=== PATIENT | female | born 1990 | race Caucasian/White ===

== ENCOUNTER 2017-03-14 12:17 | Emergency (ER) | payer OTHER ==
[2017-03-14 12:43] VITALS: TEMP 97.5; BMI 21.0
[2017-03-14] MEDS ORDERED: SODIUM CHLORIDE 1,000 ML IV ONE (12:44)
[2017-03-14 13:04] LABS: BASOPHIL 0.7 % (0-2.0); EOSINOPHIL 0.4 % (0-4.5); MCH 29.3 pg (25.7-33.7); MCHC 33.8 g/dl (32.0-36.0); MEAN CELL VOLUME 86.7 fl (80-96); NEUTROPHILS 73.7 % (42.8-82.8); PLATELET COUNT 197 K/MM3 (134-434); RDW 12.7 % (11.6-15.6); WHITE BLOOD COUNT 7.7 K/mm3 (4.0-10.0)
[2017-03-14 13:28] LABS: ALBUMIN 4.4 g/dl (3.4-5.0); ANION GAP 11 (8-16); BILIRUBIN,TOTAL 0.6 mg/dL (0.2-1.0); CALCIUM 9.2 mg/dL (8.5-10.1); CO2 22 mmol/L (21-32); COCKROFT - GAULT 87.7455; CREATININE 0.8 mg/dL (0.55-1.02); GLUCOSE,RANDOM 113 mg/dL (74-106); SGOT/AST 15 U/L (15-37); SGPT/ALT 20 U/L (12-78); TOT PROT 7.4 g/dl (6.4-8.2)
[2017-03-14 13:36] LABS: ALK PHOS 54 U/L (45-117); THYROID STIMULATING HORMONE 1.62 uIU/ml (0.358-3.74)
--- NOTE | 2017-03-14 13:40 | PDOC ---
History of Present Illness - General Chief Complaint: Irregular Heart Beat Stated Complaint: Irregular Heart Beat Time Seen by Provider: 03/14/17 12:34 History Source: Patient Exam Limitations: No Limitations - History of Present Illness Initial Comments: 03/14/17 13:34 26y F hx of postural orthostatic tachycardia presents with tachycardia. pt states she was fine earlier today, at work she started to feel palpitations and lightheadedness, her HR went up to 160 on her Fitbit. she sat down and drank some water, and still felt palpitations, so came to the Ed for evaluation. The pt states she has had the diagnosis for ~10 yars after mono and daily has episodes of tachycardia/lightheadedness when she stands up, but typially symptoms are shorter lasting. The pt states she is feeling improved now, denies any chest pain, sob, back pain, n/v, f/c, recent cough, abd pain, urianry or bowel symtoms. Past History - Past Medical History Allergies/Adverse Reactions: Allergies Allergy/AdvReac Type Severity Reaction Status Date / Time No Known Allergies Allergy Verified 03/14/17 12:30 Home Medications: Ambulatory Orders NK [No Known Home Medication] 03/14/17 Other medical history: POSTURAL ORTHOSTATIC TACHYCARDIC SYNDROME - Psycho/Social/Smoking Cessation Hx Suicidal Ideation: No Smoking History: Never smoked Hx Alcohol Use: No Drug/Substance Use Hx: No Review of Systems - Review of Systems Able to Perform ROS?: Yes Comments:: 03/14/17 13:37 Constitutional - no reported Fever, Chills, HEENT: no reported vision changes, sore throat Respiratory: no reported cough, sob, hemoptysis Cardiac: +palpitations, light headedness, no reported chest pain, leg swelling Abd/GI: no reported abd pain, nausea, vomiting, blood per rectum, melena, diarrhea : no reported dysuria, frequency, discharge Musculskelatal - no reported back pain, joint swelling skin - no reported bruising, erythema, rash neurological: no reported headache, numbness, focal weakness, tingling, ataxia, hematologic: no reported anemia, easy bruising, easy bleeding *Physical Exam - Vital Signs Last Vital Signs Temp Pulse Resp BP Pulse Ox 97.5 F L 130 H 20 141/89 100 03/14/17 12:30 03/14/17 12:30 03/14/17 12:30 03/14/17 12:30 03/14/17 12:30 - Physical Exam Comments: 03/14/17 13:38 GENERAL: The patient is awake, alert, and fully oriented, Nontoxic - in no acute distress. HEAD: Normocephalic, atraumatic. EYES: extraocular movements intact, sclera anicteric, conjunctiva clear. ENT: Normal voice, Moist mucous membranes. NECK: Normal range of motion, supple LUNGS: Breath sounds equal, clear to auscultation bilaterally. No wheezes, no rhonchi, no rales. HEART: Regular rate and rhythm, normal S1 and S2 without murmur, rub or gallop. ABDOMEN: Soft, nontender, normoactive bowel sounds. No guarding, no rebound. . No CVA tenderness EXTREMITIES: Normal range of motion, no edema. No clubbing or cyanosis. No cords, erythema, or tenderness. NEUROLOGICAL: No facial assymetry, Normal speech, PSYCH: Normal mood, normal affect. SKIN: Warm, Dry, normal turgor, Heart Score/ECG Review - ECG Impressions Comment:: 03/14/17 13:39 Twelve-lead EKG was performed and reviewed by me. There is normal sinus rhythm with a rate of 112 The axis is normal. normal r wave progression Impression: sinus tachycardia ED Treatment Course - LABORATORY CBC & Chemistry Diagram: 03/14/17 12:45 03/14/17 12:45 - ADDITIONAL ORDERS Additional order review: Laboratory Results 03/14/17 12:45 Sodium 138 Potassium 3.7 Chloride 105 Carbon Dioxide 22 Anion Gap 11 BUN 9 Creatinine 0.8 D Creat Clearance w eGFR > 60 Random Glucose 113 H D Calcium 9.2 Total Bilirubin 0.6 AST 15 ALT 20 D Total Protein 7.4 Albumin 4.4 03/14/17 12:45 RBC 4.63 MCV 86.7 MCHC 33.8 RDW 12.7 MPV 9.0 Neutrophils % 73.7 Lymphocytes % 20.8 Monocytes % 4.4 Eosinophils % 0.4 Basophils % 0.7 Medical Decision Making - Medical Decision Making 03/14/17 13:38 26-year-old female history of postural orthostatic tachycardia presents with episodes of palpitations and lightheadedness this morning while at work, symptoms are baseline for her although it is longer lasting than usual. The patient's exam is unremarkable Will obtain blood work to rule out anemia, metabolic derangements, thyroid disease, We'll give the patient some fluids for hydration 03/14/17 14:07 labs reviewed unremarakble pt feeling improved will d/c the pt with pmd fu returnprecautions were disucssed I discussed the physical exam findings, ancillary test results and final diagnoses with the patient. I answered all of the patient's questions. The patient was satisfied with the care received and felt comfortable with the discharge plan and treatment plan. The patient will call their primary care physician within 24 hours to arrange follow-up and will return to the Emergency Department with any new, persistent or worsening symptoms. *DC/Admit/Observation/Transfer Diagnosis at time of Disposition: POTS (postural orthostatic tachycardia syndrome) - Discharge Dispostion Disposition: HOME Condition at time of disposition: Improved Admit: No - Referrals Referrals: Armando Zuniga [Primary Care Provider] - - Patient Instructions Printed Discharge Instructions: DI for Arrhythmias Additional Instructions: Return to the emergency department immediately with ANY new, persistent or worsening symptoms. You MUST call and follow up with your doctor tomorrow for further evaluation of your symptoms. Results were discussed with you. Please make sure your doctor reviews the results of your emergency evaluation. If you had any xrays during your visit, it was read preliminarily by myself, a Radiologist will review it and if there are any additional findings we will call you. Print Language: ARGENTINE
--- NOTE | 2017-03-14 13:42 | EKG ---
Test Reason : Blood Pressure : / mmHG Vent. Rate : 112 BPM Atrial Rate : 112 BPM P-R Int : 142 ms QRS Dur : 082 ms QT Int : 354 ms P-R-T Axes : 067 067 039 degrees QTc Int : 483 ms SINUS TACHYCARDIA POSSIBLE LEFT ATRIAL ENLARGEMENT INCOMPLETE RIGHT BUNDLE BRANCH BLOCK NO PREVIOUS ECGS AVAILABLE Confirmed by [facility] LEVI, MANISH ([id number]) on 03/14/2017 1:41:45 PM Referred By: Confirmed By:MANISH SALOMON MD
[2017-03-14 14:43] VITALS: BP 120/80; PULSE 92
== END 2017-03-14 14:43 | disposition home or self-care (01) ==
LOC: JER 12:17
PROC: 3E0337Z Introduction of Electrolytic and Water Balance Substance into Peripheral Vein, Percutaneous Approach (ICD-10-PCS; principal; 2017-03-14)
DX: R00.0 Tachycardia, unspecified (principal)
CPT/HCPCS: 36415; 80053; 84443; 84703; 85025; 93005; 93010; 99284-25